=== PATIENT | male | born 1965 ===

== ENCOUNTER 2017-11-26 06:03 | Inpatient (IN) | payer BC ==
[~2017-11-26 06:03] MED LIST: Buffered Lidocaine 0.9% SYRIN* 5 ML/SYR SYRINGE INTRADERM ONE; Sodium Citrate/Citric Acid* 15 ML UDC PO ONE
[2017-11-26] MEDS ORDERED: Heparin VIAL(*) 5000 UNITS/ML VIAL (FIVE THOUSAND) ONE (06:11)
[2017-11-26] MEDS ORDERED: Sodium Citrate/Citric Acid* 15 ML UDC ONE (06:11)
[2017-11-26] MEDS ORDERED: ceFAZolin 2 GM PREMIX (*) 2 GM/50 ML BAG IVPB ONE (06:11)
[2017-11-26] MEDS ORDERED: Buffered Lidocaine 0.9% SYRIN* 5 ML/SYR SYRINGE ONE (06:11)
[2017-11-26] MEDS ORDERED: Clindamycin 900 MG IVPREMIX(* 900 MG/50 ML SDV IV ONE (06:11)
[2017-11-26] MEDS ORDERED: ceFAZolin 1 GM in Dextrose (*) 1 GM/50 ML BAG IVPB ONE (06:11)
[2017-11-26] MEDS ORDERED: Methylene Blue 0.5 %* 50 MG/10 ML AMP IV ONE (07:29)
[2017-11-26] MEDS ORDERED: Bupivacaine 0.25% SDV* 30 ML ONE (07:29)
[2017-11-26] MEDS ORDERED: fentaNYL* 50 MCG/ML 2 ML VIAL (100 MCG VIAL) ONE ×4 (07:58→10:51)
[2017-11-26] MEDS ORDERED: Rocuronium* 10 MG/ML VIAL ONE (07:58)
[2017-11-26] MEDS ORDERED: Lidocaine 2% PF * 5 ML VIAL ONE (08:13)
[2017-11-26] MEDS ORDERED: Propofol* 10 MG/ML 20 ML BTL IV PUSH ONE (08:13)
[2017-11-26] MEDS ORDERED: Cisatracurium* 2 MG/ML MDV 5 ML ONE (08:51)
[2017-11-26] MEDS ORDERED: DiMENhydriNATE IV* 50 MG/ML VIAL IV PUSH PRN (09:43)
[2017-11-26] MEDS ORDERED: Naloxone* 0.4 MG/ML 1 ML VIAL IV PRN (09:43)
[2017-11-26] MEDS: fentaNYL* 50 MCG/ML 2 ML VIAL (100 MCG VIAL) IV PRN ×4 (10:29→11:32)
[2017-11-26] MEDS ORDERED: Ondansetron INJ* 2 MG/ML VIAL IV PRN (10:39)
[2017-11-26] MEDS ORDERED: HYDROmorphone INJ* 2 MG/ML CARPUJECT SYRINGE IV PRN (10:39)
[2017-11-26] MEDS ORDERED: diPHENhydraMINE IV* 50 MG/ML 1 ml VIAL (BENADRYL) SLOW PUSH PRN (10:39)
--- NOTE | 2017-11-26 10:39 | OP ---
Operative Report - Blank - Operative Report Date of Operation: 11/26/17 Note: Preop and Postop Dx: morbid obesity Procedure: laparoscopic Jeannette en Y gastric bypass Anesthesia: GET Surgeon: Shelia Asst: EDWARD Stevenson; JANNET Devine Fluids: 1300ml EBL: < 50 ml Drains: none Specimen: none Findings: dictated
[2017-11-26] MEDS: Ketorolac INJ* 30 MG/ML 1 ML VIAL IV PRN ×2 (12:54→19:41)
[2017-11-26] MEDS: Heparin VIAL(*) 5000 UNITS/ML VIAL (FIVE THOUSAND) SUBCUT SCH ×2 (14:54→22:34)
[2017-11-26] MEDS: HYDROmorphone INJ* 2 MG/ML CARPUJECT SYRINGE IV PRN ×2 (16:28→22:31)
[2017-11-26] MEDS: DIVALPROEX SPRINKLE 125 MG PO SCH (20:18)
[2017-11-26] MEDS: Famotidine IV* 10 MG/ML 2 ML (20 mg) IV SLOW PU SCH (20:23)
[2017-11-27] MEDS: HYDROmorphone INJ* 2 MG/ML CARPUJECT SYRINGE IV PRN ×2 (02:20→05:38)
[2017-11-27] MEDS: Heparin VIAL(*) 5000 UNITS/ML VIAL (FIVE THOUSAND) SUBCUT SCH ×3 (05:40→22:44)
[2017-11-27] MEDS: DIVALPROEX SPRINKLE 125 MG PO SCH ×2 (08:14→19:33)
[2017-11-27] MEDS: Famotidine IV* 10 MG/ML 2 ML (20 mg) IV SLOW PU SCH ×2 (09:02→20:47)
[2017-11-27] MEDS: Ketorolac INJ* 30 MG/ML 1 ML VIAL IV PRN ×2 (09:03→16:38)
[2017-11-27] MEDS: D5W 1/2 NS KCl 20 Meq 1000 ML* 1,000 ML IV SCH ×2 (09:09→16:38)
[2017-11-27] MEDS ORDERED: HYDROcodone/ACET. 7.5/325 LIQ* 15 ML UDC PO PRN (10:16)
[2017-11-27] MEDS ORDERED: Acetaminophen ADULT LIQ* 650 MG/20.3 ML UDC PO PRN (10:17)
--- NOTE | 2017-11-27 10:20 | PN ---
Progress Note - Progress Note Date of Service: 11/27/17 SOAP: Subjective: [The patient reports he is doing well. He reports minimal incision pain and states he was ambulating 3x a day yesterday. The patient denies nausea, vomiting , chest pain, and SOB. ] Objective: [ Vital Signs Temp 98.2 F 11/27/17 07:43 Pulse 66 11/27/17 07:43 Resp 16 11/27/17 08:00 BP 121/67 11/27/17 07:43 Pulse Ox 97 11/27/17 08:50 Intake & Output 11/26/17 11/27/17 11/27/17 18:59 06:59 18:59 Intake Total 100 1960 Output Total 900 575 Balance -800 1385 Intake: IV Fluids 100 1960 LR 1960 NS 50ML, Cefazolin 1G 50 NS 50ML, Cefazolin 2G 50 Oral 0 Output: Urine 150 Donovan 750 575 Other: # Bowel Movements 0 Vitals Reviewed: Stable General: The patient was lying comfortably in bed Heart: RRR, no murmur Lungs: Clear to ausculation bilaterally Abdomen: Soft, non-distended, non-tender. Dressing and clean dry and intact. Extremities: No evidence of edema ] Assessment: [This is a 52 y.o male s/p laparascopic Jeannette-en-y Gastric Bypass who is currently stable.] Plan: [- Advance diet to clear liquids - D/c Donovan - Possible discharge 11/28 ]
--- NOTE | 2017-11-27 12:34 | OP ---
CC: Michael Bah MD; [facility] * DATE OF OPERATION: 11/26/17 - ROOM #[id number] DATE OF : 63 SURGEON: Dragan Bass MD TAILINGS WORKER: EDWARD Brice ANESTHESIOLOGIST: Yosi Amaya DO ANESTHESIA: General endotracheal. PRE-OP DIAGNOSIS: Morbid obesity. POST-OP DIAGNOSIS: Morbid obesity. OPERATIVE PROCEDURE: Laparoscopic Jeannette-en-Y gastric bypass. ESTIMATED BLOOD LOSS: Minimal. IV FLUIDS: 3 L of crystalloid. SPECIMEN: None. DRAINS: None. COMPLICATIONS: None. COUNTS: Instrument, needle, and sponge counts correct. DESCRIPTION OF PROCEDURE: The patient was brought to the operating room and placed on the table supine. Sequential compression devices were placed on both lower extremities. General anesthesia was administered. Donovan catheter was placed. He was positioned and padded appropriately and time-out was performed. Local anesthetic was infiltrated into the skin and soft tissue prior to making each incision. Entry through the abdomen was through a left upper quadrant incision accommodating a 12-mm optical trocar. After accessing the peritoneal cavity, carbon dioxide was insufflated to a pressure of 15 mmHg, and under direct visualization, 12-mm bladeless trocars were placed in the right upper quadrant, supraumbilical region. 5-mm trocars were placed in the right upper quadrant medially and left upper quadrant laterally. A Karla liver retractors were placed in the subxiphoid position percutaneously and used to elevate the left lobe of the liver. Gastric anatomy appeared to be normal. Visualized fat pad that was mobilized as the cardia of the stomach was freed from the attachments to the left arnold of the diaphragm. Perigastric dissection was then undertaken in the lesser curvature and transverse firing was performed with the Endo LATONIA stapler with a 45-mm stuart cartridge and then firings were taken vertically allowing the line to course towards the angle of His. The pouch approximated 15 to 30 mL volume. Next, the omentum was divided down the midline and the transverse colon was retracted superiorly. Ligament of Treitz was identified and jejunum was measured at approximately 50 to 60 cm. This loop was then sutured to the lateral aspect of the gastric pouch with interrupted 2-0 silk. The gastrojejunal anastomosis was performed with the Endo LATONIA stapler with 30-mm cartridge. The gastroenterotomy was closed with 3- 0 PDS over a 34-Liberian gastric lavage tube to assure the patency of the anastomosis. The loop of jejunum was then divided coming left of the anastomosis. They complete the anastomosis and then the anastomosis was tested with methylene blue dye solution instilled through the orogastric tube. No leak was identified. An additional suture of 3-0silk was placed at the apex of the anastomosis for reinforcement. The Jeannette limb was measured out then for 75 cm. At this point, a functional end- to- side jejunojejunostomy was created with a 60-mm stuart Endo LATONIA stapler cartridge. The common enterotomy was then closed with 3-0 PDS. The mesenteric defect at the jejunojejunostomy was then closed with 3-0 silk running locking. Hemostasis was assured. The Karla liver retractor was removed and all ports removed under direct visualization and carbon dioxide was released. Skin incisions were closed with zahraa. Dressings were applied. The patient tolerated the procedure well, was extubated and transferred to the recovery room in stable condition. [id number]/[facility] #: [id number] HERMANN
[2017-11-28] MEDS: Heparin VIAL(*) 5000 UNITS/ML VIAL (FIVE THOUSAND) SUBCUT SCH (06:04)
[2017-11-28] MEDS: DIVALPROEX SPRINKLE 125 MG PO SCH (07:23)
--- NOTE | 2017-11-28 08:25 | PN ---
Progress Note - Progress Note Date of Service: 11/28/17 SOAP: Subjective: Patient seen and examined at bedside. Reports doing very well, minimal incisional pain. Tolerating bariatric clear liquids, denies any nausea or vomiting. Ambulatory, voiding well after Donovan d/c'ed. Ready to go home. Objective: Awake and alert, sitting on his bed, in NAD VSS, afebrile Lungs CTA bilat. Heart RRR, no murmurs Abdomen soft, NT, ND. Incisions C/D/I. I/O's noted, good PO intake Assessment: POD#2, s/p laparoscopic RYGB, doing very well Plan: D/C IVF D/C to home today F/U with [facility] next week as scheduled
[2017-11-28] MEDS: Famotidine IV* 10 MG/ML 2 ML (20 mg) IV SLOW PU SCH (08:40)
[2017-11-28 08:52] VITALS: BP 131/67
--- NOTE | 2017-11-28 09:58 | DS ---
AMENDED REPORT NOW INCLUDES COSIGNER DESIGNATION - ESIGNED BEFORE ADJUSTMENT DATE OF ADMISSION: 11/26/2017. DATE OF DISCHARGE: 11/28/2017. ADMITTING PHYSICIAN: Dr. Dragan Bass * (dictated by EDWARD Rose). ADMISSION DIAGNOSIS: Morbid obesity. DISCHARGE DIAGNOSIS: Morbid obesity. CONSULTATIONS: None. PROCEDURE: Laparoscopic Jeannette-en-Y bypass on 11/26/2017. BRIEF MEDICAL HISTORY: Mr. Paul is a 52-year-old gentleman who was seen at [facility] in consideration for bariatric surgery. The patient unfortunately tried multiple attempts to lose weight via exercise and weight loss diet. However, he failed to maintain any weight loss. Given his morbid obesity, he had associated comorbidities including arthritic aches and pains, depression, and ulcerative colitis. He was seen at the [facility] and was considered to be a good candidate for laparoscopic Jeannette-en-Y gastric bypass to be performed on a later date. HOSPITAL COURSE: The patient was admitted on 11/26/2017 and was taken to the operating room where he had a laparoscopic Jeannette-en-Y gastric bypass by Dr. Bass. His surgery went quite smoothly with no immediate complications. After recovery, he was taken to the surgical floor for observations. He did relatively well with only mild incisional discomfort that was well tolerated using pain medicine as needed. He was ambulatory out of bed on the following day and his Donovan catheter was discontinued. He started on a bariatric clear liquid diet that he tolerated well and had good p.o. intake with a total of 1500 cc over the first 24 hours. He continued to do well and on the second day postoperatively his exam was essentially unremarkable. He continued to ambulate and was ready to be discharged to home. DISCHARGE MEDICATIONS: 1. Imuran 50 mg three tablets p.o. q.a.m. 2. Depakote 500 mg p.o. daily. 3. Delzicol 400 mg four tablets p.o. b.i.d. 4. Lortab elixir one tablespoon q.6 hours as needed for pain. PROBLEM LIST: Morbid obesity, status post laparoscopic Jeannette-en-Y gastric bypass on 11/26/2017. EDWARD ROSE [id number]/[facility] #: [id number] HERMANN
== END 2017-11-28 13:30 | disposition home or self-care (01) | DRG 403 ==
LOC: AA 06:03 → SSU 12:13
PROVIDERS: ADMIT Surgery; ATTEND Surgery
PROC: 0D164ZA Bypass Stomach to Jejunum, Percutaneous Endoscopic Approach (ICD-10-PCS; principal; 2017-11-26 07:45)
DX: E66.01 Morbid (severe) obesity due to excess calories (principal); K51.90 Ulcerative colitis, unspecified, without complications; F32.9 Major depressive disorder, single episode, unspecified; M06.9 Rheumatoid arthritis, unspecified; G40.909 Epilepsy, unspecified, not intractable, without status epilepticus; Z80.8 Family history of malignant neoplasm of other organs or systems; Z88.6 Allergy status to analgesic agent; Z82.5 Family history of asthma and other chronic lower respiratory diseases; Z72.89 Other problems related to lifestyle; Z87.891 Personal history of nicotine dependence; Z68.41 Body mass index [BMI] 40.0-44.9, adult
CPT/HCPCS: 43644; 94760; A9270-GY; C1776; J0690; J1170; J1644; J1885; J2405; J2704; J3010